=== PATIENT | female | born 1990 | race Two or more races ===

== ENCOUNTER 2016-06-28 00:41 | Emergency (ER) | payer SELFPAY ==
[~2016-06-28] VITALS: Ht 162.6 cm; Wt 55.0 kg
[2016-06-28 01:11] VITALS: BP 121/70
== END 2016-06-28 02:55 | disposition left against medical advice (07) ==
LOC: ER 00:41
DX: R10.30 Lower abdominal pain, unspecified (principal); N93.8 Other specified abnormal uterine and vaginal bleeding; Z98.890 Other specified postprocedural states

== ENCOUNTER 2018-04-02 20:51 | Emergency (ER) | payer MEDICAID ==
[~2018-04-02] VITALS: Ht 162.6 cm; Wt 65.6 kg
[2018-04-03] MEDS ORDERED: KETOROLAC 60MG/2ML VIAL IM ONE (01:00)
[2018-04-03] MEDS ORDERED: ACETAMINOPHEN WITH CODEINE 300/30MG TABLET PO ONE (03:00)
[2018-04-03 04:27] VITALS: BP 128/72
== END 2018-04-03 04:27 | disposition home or self-care (01) ==
LOC: ER 20:51
DX: M54.2 Cervicalgia (principal); M54.9 Dorsalgia, unspecified; Y08.89XA Assault by other specified means, initial encounter
CPT/HCPCS: 72070; 72125; 81025; 96372; 99284; J1885